=== PATIENT | female | born 1990 | race African-American/Black ===

== ENCOUNTER 2024-07-03 13:50 | Outpatient (REF) | payer OTHER, SELFPAY ==
--- NOTE | ~2024-07-03 | US_ITS ---
EXAMINATION: US PELVIS HISTORY: DYSMENORRHEA, PELVIC PRESSURE, DISCOMFORT COMPARISON: There are no prior studies for comparison. TECHNIQUE: Transabdominal real-time 2D blanco-scale ultrasound was performed. The patient refused endovaginal examination. FINDINGS: Uterus: The uterus is normal in size, measuring 10.3 x 3.9 x 5.9 cm. Myometrium has a normal echotexture. No fibroids are identified. Endometrium: The endometrial stripe measures 7 mm in thickness. Right ovary: The right ovary measures 2.6 x 1.6 x 1.9 cm. The right ovary is normal in size and echotexture. Left ovary: The left ovary is not identified. Pelvic fluid: none. US/US pelvic complete IMPRESSION: The uterus and right ovary are unremarkable in appearance. The left ovary is not identified. Electronically signed by: Gregg Bal MD 07/03/2024 02:54 PM [facility] [place]
== END 2024-07-03 13:51 | disposition home or self-care (01) ==
LOC: HO.HMGCX 13:50
PROVIDERS: Visit Provider Midwife
DX: N94.6 Dysmenorrhea, unspecified (principal); N94.89 Other specified conditions associated with female genital organs and menstrual cycle
CPT/HCPCS: 76856